=== PATIENT | female | born 1990 | race Caucasian/White ===

== ENCOUNTER 2025-03-11 10:27 | Emergency (ER) | payer BC, SELFPAY ==
[2025-03-11 10:37] VITALS: BP 117/84
--- NOTE | 2025-03-11 11:42 | ED.GENMED ---
History of Present Illness
General
Chief Complaint: Problems
Time Seen by Provider: 03/11/25 11:41
History of Present Illness
History of Present Illness:
TIME OF INITIAL EVALUATION
- 11:45 AM
REVIEW OF OLD RECORDS
- The patient has had ovarian torsion in the past requiring oophorectomy on the left side.
Note:
CHIEF COMPLAINT(S)
Vaginal bleeding during early .
HISTORY OF PRESENT ILLNESS
The patient is a 34-year-old female, currently experiencing vaginal bleeding shay to menstrual bleeding. This is her third; her first was healthy, and her second resulted in a miscarriage at 13 weeks. She reports heavy bleeding
that has reduced to a steady flow. The patient is aware of her positive blood type but acknowledges the importance of confirmation through blood work to determine whether Rh immunoglobulin (Rho(D) immune globulin) is necessary. An ultrasound is
pending, and she is advised to maintain a full bladder for the procedure. She mentioned having a left oophorectomy due to ovarian torsion. Additionally, she reports right ovarian cysts from in vitro fertilization (IVF) treatment, which are causing
pain. The patient has not taken any medication for the pain and has not had a visit scheduled until 14 weeks due to insurance requirements.
EXTERNAL RECORDS REVIEWED
The patient has not had any ultrasound yet this
CHRONIC MEDICAL CONDITIONS SIGNIFICANTLY AFFECTING CARE
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 Cysts on the right ovary.
SOCIAL DETERMINANTS AFFECTING HEALTH
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
PHYSICAL EXAM
General: Alert, no acute distress.
Skin: Warm, dry.
Head: Normocephalic, atraumatic.
Neck: Supple, trachea midline.
Eye Ears, nose, mouth and throat: Oral mucosa moist.
Cardiovascular: Normal peripheral perfusion, no edema.
Respiratory: Respirations are non-labored.
Gastrointestinal: Abdomen nondistended, No significant tenderness
Back: Normal range of motion, normal alignment.
Musculoskeletal: Normal range of motion, normal strength.
Neurological: Alert and oriented to person, place, time, and situation, no focal neurological deficit observed.
Psychiatric: Cooperative, appropriate mood and affect.
PLAN
1. Order ultrasound to assess the and any potential complications.
2. Conduct basic blood work to confirm blood type and assess for any other issues.
3. Drop Worker the patient to maintain a full bladder for the ultrasound procedure.
4. Reassess the patients pain and offer appropriate analgesia if required.
5. Recommend follow-up to monitor progression and assess the need for Rho(D) immune globulin.
DIFFERENTIAL DIAGNOSIS
The Differential Diagnosis includes, in no particular order and is not limited to:
1. Threatened miscarriage
2. Ectopic
3. Gestational trophoblastic disease
4. Implantation bleeding
5. Subchorionic hemorrhage
6. Ovarian cyst rupture
7. Cervical polyp or lesion
8. Coagulation disorder
9. -related uterine bleeding
10. Other gynecological pathology
RADIOLOGY
- Ultrasound imaging obtained
EKG
-
LABS
- White count normal, hemoglobin 11.6; patient is certain that her Rh type is positive; quant has not yet been resulted but she does have a live IUP on imaging
UPDATE
-SUMMARY OF ENCOUNTER
The patient, a 34-year-old female, presented to the emergency department due to experiencing vaginal bleeding during early . This is her third following one healthy delivery and a miscarriage. She was evaluated for potential
complications related to the bleeding. An ultrasound was performed which identified either a subchorionic hemorrhage or implantation bleeding, both of which are common in early . There was confirmation of a live intrauterine .
Blood work including HCG levels and blood type screening was ordered. However, the results of the HCG level and type and screening were pending at the time of assessment. The patient is aware of her RH positive blood type. The patient is part of a
[facility] IV[facility] program that typically includes weekly visits until 10 weeks of , and she has already had two ultrasounds as part of her care plan.
DISPOSITION
The patient was discharged from the emergency department.
ASSESSMENT
The patient is experiencing vaginal bleeding in early , possibly due to a subchorionic hemorrhage or implantation bleeding. The ultrasound confirmed a live intrauterine .
PLAN
The patient will be discharged with instructions to continue regular follow-up care as part of her IVF program. She is advised to seek further consultation with her obstetrics and gynecology provider for continued management of her .
INDEPENDENT REVIEW OF LABS AND INTERPRETATION OF TESTS
My independent interpretation of the ultrasound is consistent with either a subchorionic hemorrhage or implantation bleeding, indicating a live intrauterine .
PATIENT EDUCATION AND COUNSELING
The patient was informed about the findings of the ultrasound, the potential causes of her symptoms, and the commonality of subchorionic hemorrhage or implantation bleeding in early .
FOLLOW-UP INSTRUCTIONS
The patient is advised to continue follow-up appointments with her obstetrics and gynecology provider. Contact information for a referral to another provider, if necessary, will be provided.
MEDICAL DECISION MAKING
-Complexity of Data Reviewed:
Chronic conditions affecting care include the history of ovarian torsion resulting in left oophorectomy and right ovarian cysts. Differential diagnosis considered were threatened miscarriage, ectopic , gestational trophoblastic disease,
implantation bleeding, subchorionic hemorrhage, ovarian cyst rupture, cervical polyp or lesion, coagulation disorder, -related uterine bleeding, and other gynecological pathology.
-Data:
Category 1
Non-emergency department records reviewed, including previous ultrasound as part of the current assessment.
-Risk:
Prescription medication was not prescribed, as the current assessment did not indicate an immediate need for medication. Care is affected by the social determinant of the patients requirement to use a specific provider due to insurance purposes.
DIAGNOSIS
Threatened miscarriage
Phy Exam
Physical Exam
Physical Exam:
See HPI
Course
Orders/Labs/Results
Orders:
Orders
03/11/25 11:48
US 1st Trimester Urgent
Comment:
Reason For Exam: IVF ; heavy bleeding; h/l left oophorecto
03/11/25 12:06
Blood Group&Type Urgent
Beta HCG Quantitative Urgent
Is this a screen?: No
Complete Blood Count/With Diff Urgent
03/11/25 13:26
ABO2 Urgent
BBK Wristband Number:
Associate notified that ABO2 has been ordered: [id number]
Date: 03/11/25
Time: 12:15
Tile Trimmer ID: [id number]
Abnormal Lab Results
03/11/25
12:06
RBC 4.07 L 10^6/uL
(4.20-5.40)
Hgb 11.6 L g/dL
(12.0-16.0)
Hct 33.8 L %
(37.0-47.0)
03/11/25 12:06
Vital Signs
Initial and Last Documented VS:
Initial Vital Signs
Temp Pulse Resp BP Pulse Ox
36.9 C 100 16 117/84 100
03/11/25 10:37 03/11/25 10:37 03/11/25 10:37 03/11/25 10:37 03/11/25 10:37
Last Documented Vital Signs
Temp Pulse Resp BP Pulse Ox
36.9 C 100 16 117/84 100
03/11/25 10:37 03/11/25 10:37 03/11/25 10:37 03/11/25 10:37 03/11/25 11:43
Information
Weeks gestation: Weeks: (8)
Location: Location: (iup)
*Pulse Oximetry
SaO2: 100
Oxygen Mode of Delivery: Room air
Patient hypoxic: no
*Critical Care Note
Total Time (30-74mins, 75-104mins- exclusive of procedures): Not Applicable
ED Attending Note
-
Portions of this chart may have been created with voice recognition software.� Occasional wrong word or��sound alike� substitutions may have occurred due to the inherent limitations of voice recognition software.
Discharge Plan
Departure
Patient Disposition: Home (Routine Discharge)
Date of Disposition: 03/11/25
Time of Disposition: 14:00
Patient with high blood pressure during this ER visit?: Yes
Discharge Problem:
Threatened miscarriage
Instructions: Threatened Miscarriage (DC), BLOOD PRESSURE
Referrals:
Rola Dominguez MD [Family Provider, Internal Medicine]
Activity Restrictions/Additional Instructions:
The ultrasound shows a live intrauterine with small subchorionic hemorrhage/implantation bleeding. I have given you the contact information for a local customer loyalty representative but I also recommend that you follow-up with your doctors at [facility].
Interventions
Interventions:
*Risk Screen - Suicide Last Done: 03/11/25 10:37
*General Assessment Last Done: 03/11/25 11:57
*Neglect/Abuse Screening Last Done: 03/11/25 10:37
*ED- Fall Risk Assessment Last Done: 03/11/25 11:57
*ED COVID-19 Vaccine History Last Done: 03/11/25 11:57
ED-Female Genitourinary Assessment Last Done: 03/11/25 12:37
Discharge Date and Time
Print Language: THAI
[2025-03-11 12:20] LABS: Hematocrit 33.8 % (37.0-47.0); Hemoglobin 11.6 g/dL (12.0-16.0); Mean Corp Hgb Conc. 34.3 g/dL (33.0-37.0); Mean Corpuscular Volume 83.0 fL (81.0-99.0); Nucleated Red Blood Cells % 0 %; Platelet Count 276 10^3/uL (130-400); Red Cell Dist. Width 14.0 % (11.5-14.5)
[2025-03-11 14:23] LABS: Beta HCG Quantitative 262140.00 mIU/ml
== END 2025-03-11 14:31 | disposition home or self-care (01) ==
LOC: EMR 10:27
PROVIDERS: EMERGENCY PHYSICIAN Emergency Medicine; FAMILY PHYSICIAN Internal Medicine
DX: O20.0 Threatened abortion (principal); O34.81 Maternal care for other abnormalities of pelvic organs, first trimester; N83.201 Unspecified ovarian cyst, right side; Z90.721 Acquired absence of ovaries, unilateral; Z3A.08 8 weeks gestation of pregnancy
CPT/HCPCS: 99284; 76801; 84702; 85025; 86900; 86901